=== PATIENT | male | born 1990 | race Caucasian/White ===

== ENCOUNTER → 2022-03-27 18:30 | Outpatient (CLI) | payer OTHER, SELFPAY ==
--- NOTE | 2022-03-27 | DI.MRI.S_ITS ---
PROCEDURE: MR KNEE LT WO CON INDICATIONS: PAIN IN LEFT KNEE TECHNIQUE: Noncontrast sagittal PD fast spin echo and T2 fast spin echo with fat saturation, sagittal 3-D FLASH with fat saturation; coronal T1 spin echo and PD fast spin echo with fat saturation, and axial PD fast spin echo with fat saturation through the knee. COMPARISON: None. FINDINGS: Image quality: Excellent. Menisci: The medial and lateral menisci demonstrate normal morphology and internal signal. The meniscal root ligaments appear intact. Cruciate ligaments: The anterior and posterior cruciate ligaments appear intact. Medial structures: The medial collateral ligament appears intact. Visualized portions of the pes anserinus tendons appear normal. No abnormal bursal fluid. Lateral structures: The lateral collateral ligament, long and short heads of the biceps femoris tendon appear intact. The popliteus tendon appears normal. Iliotibial band appears normal. Anterior structures: Low-grade partial-thickness tearing of the mid and lateral aspect of the quadriceps tendon at the patellar insertion site. The quadriceps and patellar tendons otherwise appear intact. Patellar alignment is normal. No femoral trochlear dysplasia or ventral trochlear prominence. No edema in the infrapatellar fat pad. Bones and cartilage: No bone marrow contusions or fractures. The cartilage of the medial and lateral femorotibial compartments, as well as the patellofemoral compartment, appears normal in thickness. Joint space: There is physiologic knee joint fluid. Small Dixon's cyst. Normal appearing synovial plicae are incidentally noted. IMPRESSION: 1. No internal derangement. 2. Low-grade tearing of the quadriceps tendon at the patellar insertion site. 3. Small Dixon's cyst. Dictated by: Jess Christianson M.D. on 03/28/2022 at 9:27 Approved by: Jess Christianson M.D. on 03/28/2022 at 9:28
== END ==
PROVIDERS: PCP Student in an Organized Health Care Education/Training Program; Referring Provider Student in an Organized Health Care Education/Training Program; Visit Provider Student in an Organized Health Care Education/Training Program
DX: S76.112A Strain of left quadriceps muscle, fascia and tendon, initial encounter (principal); M71.22 Synovial cyst of popliteal space [Baker], left knee; M25.562 Pain in left knee
CPT/HCPCS: 73721

== ENCOUNTER → 2022-10-11 06:51 | Outpatient (CLI) | payer OTHER, SELFPAY ==
--- NOTE | 2022-10-11 06:52 | DI.ECHO.S_ITS ---
[place] +---------+ [facility] +---------+ : : [address] : [address] : : : : [id number] : : : : Phone: [phone]+ Echocardiogram Report + + :Name: REED CAMILO Study Date: 10/11/2022 Height: 75 in : :[facility] ReadingLocation: Weight: 235 lb : : Gender: Male BSA: 2.4 m2 : :: 1990 Age: 31 yrs BP: 128/83 mmHg: :Reason For Study: ABNORMAL RESULT OF OTHER CARDIOVASCULAR : :FUNCTION : :Ordering Physician: VIOLETA : :FROYLAN Performed By: Eri Red : :Referring: FROYLAN MCDANIEL : + + Interpretation Summary The ejection fraction is estimated to be 50-55%. Diastolic parameters suggest probable normal left ventricular diastolic function and normal filling pressures. The right ventricle is normal in size and function. No significant valvular abnormalities. Unable to estimate PASP. Procedure: A two-dimensional transthoracic echocardiogram with color flow and Doppler was performed. The study quality was technically good. There is no prior echocardiogram noted for this patient. The patient was in sinus rhythm with heart rates between 50-63 bpm during the exam. Left Ventricle: The left ventricle is normal in size and wall thickness. The ejection fraction is estimated to be 50-55%. Diastolic parameters suggest probable normal left ventricular diastolic function and normal filling pressures. Right Ventricle: The right ventricle is normal in size and function. Atria: The left atrial size is normal. Right atrial size is normal. There is no Doppler evidence for an interatrial shunt. Mitral Valve: The mitral valve is normal in structure and function. There is trace mitral regurgitation. Aortic Valve: The aortic valve is trileaflet. The aortic valve opens well. There is no aortic valve stenosis. No aortic regurgitation is present. Tricuspid Valve: The tricuspid valve is normal in structure and function. There is trace tricuspid regurgitation. Pulmonary artery pressures cannot be estimated because of the lack of a measurable TR jet velocity. Pulmonic Valve: The pulmonic valve is not well visualized. There is trace pulmonic regurgitation. Great Vessels: The aortic root is normal size. The dimensions of the ascending aorta are normal. The IVC is of normal diameter and collapses greater than 50% with a sniff. This suggests a low right atrial pressure of 3 mm Hg. Pericardium/ Pleura There is no pericardial effusion. There is no pleural effusion. MMode/2D Measurements & Calculations LVIDd: 5.3 cm LVOT diam: 2.1 cm LVIDs: 3.8 cm Ao root diam: 3.6 cm FS: 28.7 % asc Aorta Diam: 3.1 cm EPSS: 0.55 cm Ao Arch Diam (Prox Trans): 2.8 cm IVSd: 0.77 cm LVPWd: 0.63 cm LV estrella. diameter/BSA (cm/m^2): 2.2 LV sys. diameter/BSA (cm/m^2): 1.6 LA A2 area: 20.2 cm2 RA long axis: 4.9 cm LA A4 area: 16.7 cm2 RA area: 16.5 cm2 LA length (vol): 4.5 cm RA vol: 47.0 ml LA vol: 63.2 ml RA : 20.0 ml/m2 LA vol index: 26.9 ml/m2 IVC diam: 2.0 cm RVD1 (basal): 4.0 cm RVD2 (mid): 3.8 cm TAPSE: 1.6 cm Doppler Measurements & Calculations Ao V2 max: 118.6 cm/sec LVOT Max Ramana: 80.2 cm/sec Ao V2 mean: 91.3 cm/sec LV V1 max P.6 mmHg Ao max P.6 mmHg LV V1 VTI: 18.1 cm Ao mean P.6 mmHg GERARDO(I,D): 2.2 cm2 Ao V2 VTI: 28.8 cm GERARDO(V,D): 2.4 cm2 sev ratio: 0.63 GERARDO indexed to BSA (cm^2/m^2): 0.94 MV E max ramana: 85.0 cm/sec PA V2 max: 73.6 cm/sec MV A max ramana: 60.3 cm/sec PA V2 mean: 53.0 cm/sec MV E/A: 1.4 PA mean P.2 mmHg Med Peak E' Ramana: 10.5 cm/sec E/E' med: 8.1 Lat Peak E' Ramana: 14.7 cm/sec E/E' lat: 5.8 E/e' average: 7.0 MV dec time: 0.24 sec SV([facility]): 63.5 ml Reading Physician:08:57 AM
== END ==
PROVIDERS: PCP Student in an Organized Health Care Education/Training Program; Referring Provider Student in an Organized Health Care Education/Training Program; Visit Provider Student in an Organized Health Care Education/Training Program
DX: R94.39 Abnormal result of other cardiovascular function study (principal)
CPT/HCPCS: 93306